=== PATIENT | female | born 1960 | race Hispanic/Latino ===

== ENCOUNTER → 2018-08-30 | Outpatient (CLI) | payer BC | END | disposition home or self-care (01) | LOC: RAH 15:42 | PROVIDERS: ATTEND Physician Assistant Medical | DX: Z12.31 Encounter for screening mammogram for malignant neoplasm of breast (principal) | CPT/HCPCS: 77067 ==

== ENCOUNTER 2018-09-07 07:28 | Observation (INO) | payer BC ==
[2018-09-03 14:36] VITALS: BP 112/60
[2018-09-03 14:43] LABS: APPEARANCE,URINE Clear (CLEAR); BILIRUBIN,URINE Negative (NEGATIVE); COLOR,URINE Yellow (YELLOW); GLUCOSE, URINE (UA) >=1000 mg/dL (NEGATIVE); KETONES,URINE Negative (NEGATIVE); LEUKOCYTE ESTERASE ,URINE Negative (NEGATIVE); NITRATE,URINE Negative (NEGATIVE); OCCULT BLOOD,URINE Negative (NEGATIVE); PROTEIN,URINE Negative (NEGATIVE); UROBILINOGEN,URINE 0.2 mg/dL (0.2-1.0)
[2018-09-03 14:44] LABS: BASOPHILS % (AUTO) 0.5 % (0.0-5.0); LYMPHOCYTES % (AUTO) 30.8 % (21.0-51.0); MEAN CORPUSCULAR HEMOGLOBIN 30.2 pg (27.0-33.0); MEAN CORPUSCULAR HGB CONC 32.8 g/dL (32.0-36.0); MEAN CORPUSCULAR VOLUME 91.8 fL (79-99); MONOCYTES % (AUTO) 5.1 % (3.0-13.0); NEUTROPHILS % (AUTO) 62.6 % (40.0-77.0); NUCLEATED RED BLOOD CELLS 0.1 % (0.0-0.19); PLATELET COUNT (AUTO) 202 K/uL (130-400); RED CELL DISTRIBUTION WIDTH 13.7 % (11.0-15.5); WHITE BLOOD COUNT (AUTO) 5.5 K/uL (4.8-10.8)
[2018-09-03 14:58] LABS: CREATININE 0.6 mg/dL (0.5-1.5); POTASSIUM 4.5 mmol/L (3.5-5.1)
[2018-09-03 15:14] LABS: BACTERIA,URINE None Seen /HPF (None Seen); MUCUS,URINE None Seen LPF (None Seen); RBC,URINE None Seen /HPF (0-1); SQUAMOUS EPITHELIAL CELL,UR None Seen /HPF (0-2); WBC,URINE 0-1 /HPF (0-1)
[2018-09-07] VITALS (24 sets, daily range): BP systolic 89–127; BP diastolic 50–70
[~2018-09-07] VITALS: Ht 152.4 cm; Wt 52.6 kg
[~2018-09-07 07:28] MED LIST: DAPA10TA PO; LISI2.5T2 PO; METF-446 PO; SIMV40TA5 PO
[2018-09-07] MEDS ORDERED: SODIUM CHLORIDE 0.9% 1000ML 1,000 ML IV ONE (08:05)
[2018-09-07] MEDS ORDERED: ONDANSETRON HCL 4 MG/2 ML VIAL ONE (08:38)
[2018-09-07] MEDS ORDERED: DEXAMETHASONE SOD PHOSPHATE 10MG/ML 1ML VIAL ONE (08:38)
[2018-09-07] MEDS ORDERED: ROCURONIUM 10MG/1ML SYR 10 MG/ML ML ONE (08:38)
[2018-09-07] MEDS ORDERED: MIDAZOLAM HCL 1 MG/ML 2ML VIAL ONE (08:38)
[2018-09-07] MEDS ORDERED: GLYCOPYRROLATE 1 MG/5 ML SYRINGE ONE (08:38)
[2018-09-07] MEDS ORDERED: PROPOFOL 10 MG/ML 20ML VIAL IV ONE (08:38)
[2018-09-07] MEDS ORDERED: LIDOCAINE PF 2% 5ML ABBOJECT ONE (08:38)
[2018-09-07] MEDS ORDERED: NEOSTIGMINE 5MG/5ML SYR IV ONE (08:38)
[2018-09-07] MEDS ORDERED: ROPIVACAINE 0.5% 5MG/ML 30ML IJ ONE (08:39)
[2018-09-07] MEDS ORDERED: FENTANYL CITRATE PF 50 MCG/1 ML 2ML VIAL ONE ×2 (08:39→10:33)
[2018-09-07] MEDS ORDERED: DEXAMETHASONE SOD PHOSPHATE 4 MG/ML 1ML VIAL ONE (08:39)
[2018-09-07] MEDS ORDERED: SODIUM CHLORIDE 0.9% 10 ML VIAL ONE (08:44)
[2018-09-07] MEDS: CEFAZOLIN SODIUM 1 GM VIAL ONE ×2 (08:48→10:15)
[2018-09-07] MEDS ORDERED: PROPRANOLOL HCL 1 MG/ML VIAL IVP ONE ×2 (10:23→10:33)
[2018-09-07] MEDS ORDERED: PHENYLEPHRINE HCL 10 MG/ML 1ML VIAL IV ONE (10:50)
[2018-09-07] MEDS ORDERED: MORPHINE SULFATE 2 MG/ML 1ML SYG IV PRN (12:00)
[2018-09-07] MEDS ORDERED: ACETAMINOPHEN-CODEINE 300/30MG TAB PO PRN (12:00)
[2018-09-07] MEDS ORDERED: ACETAMINOPHEN 325 MG TAB PO PRN (12:00)
[2018-09-07] MEDS ORDERED: ONDANSETRON HCL 4 MG/2 ML VIAL IVP PRN (12:00)
[2018-09-07] MEDS ORDERED: MEPERIDINE-PF 25 MG/ML SYG ONE ×2 (12:11→12:59)
--- NOTE | 2018-09-07 13:40 | NUR ---
PATIENT WAS RECEIVED IN BED WITH EYES CLOSED AND DROWZY, OPENS THEM TO SOFT VOICE STIMULI AND ANSWER QUESTIONS APPROPRIATELY. SHE VOICED TENDERNESS TO THE ABDOMEN WHEN ASKED, THEN SHE FALLS ASLEEP. VITAL SIGNS ARE STABLE AND IVF IS INFUSING WITHOUT PROBLEM.STEVENSON CATHETER IS TO BEDSIDE DRAINAGE BAG WITH CLEAR PALE YELLOW URINE. PATIENT IS UNABLE TO PROVIDE INFORMATION AT THIS TIME DUE TO SEDATION. NO FAMILY IS PRESENT AT THIS TIME, CALL LIGHT IS PLACED WITHIN HER REACH. WILL CONTINUE TO MONITOR.
--- NOTE | 2018-09-07 14:00 | NUR ---
ABDOMINAL DRESSING HAS BLOOD STAIN THAT I CIRCLED. BINDER IS IN PLACE.
--- NOTE | 2018-09-07 17:15 | NUR ---
FAMILY MEMBERS ARE AT THE BEDSIDE AT THIS TIME AND SHE IS AWAKE AND SITTING IN THE BED EATING WITHOUT PROBLEM. PLAN OF CARE WAS EXPLAINED TO THE PATIENT AND FAMILY AT THE BEDSIDE AND RT WAS NOTIFIED EARLIER TO PROVIDE HER WITH INCENTIVE SPIROMETRY FOR BREATHING EXERCISE AND SCD'S ARE ON.
--- NOTE | 2018-09-07 18:25 | NUR ---
ASSISTED UP INTO THE CHAIR, TOLERATED ACTIVITY WELL. AMBULATION IS ENCOURAGED.
[2018-09-07] MEDS: SODIUM CHLORIDE 0.9% 1000ML 1,000 ML IV SCH (19:03)
[2018-09-07] MEDS: CEFAZOLIN SODIUM 1 GM VIAL IVP SCH ×2 (19:04→20:00)
--- NOTE | 2018-09-07 19:30 | NUR ---
AMBULATING IN THE HALLWAY ASSISTED BY FAMILY MEMBERS.
[2018-09-08] VITALS: BP 92/51
[2018-09-08 04:00] VITALS: BP 92/53
[2018-09-08] MEDS: CEFAZOLIN SODIUM 1 GM VIAL IVP SCH ×2 (04:23→12:56)
[2018-09-08] MEDS: SODIUM CHLORIDE 0.9% 1000ML 1,000 ML IV SCH (04:57)
[2018-09-08 07:30] VITALS: BP 97/53
[2018-09-08] MEDS ORDERED: METFORMIN HCL 500 MG TABLET PO SCH (08:00)
[2018-09-08] MEDS ORDERED: LISINOPRIL 2.5 MG TABLET PO SCH (09:00)
--- NOTE | 2018-09-08 09:34 | NUR ---
MD ROUNDS DR. SLADE VISITED WITH PATIENT. PLAN OF CARE DISCUSSED. NEW ORDERS RECEIVED AND CARRIED OUT.
[2018-09-08] MEDS ORDERED: ACET1TAB12 PO (09:38)
--- NOTE | 2018-09-08 10:30 | NUR ---
STEVENSON CATHETER D/C PER DR. SLADE ORDERS. TIP OF CATHETER INTACT. PATIENT TOLERATED WELL. BALLOON DEFLATED WITH 10 CC OF WATER. PATIENT DUE TO VOID AT 1630.
[2018-09-08 11:00] VITALS: BP 94/57
--- NOTE | 2018-09-08 12:30 | NUR ---
PATIENT VOIDED 150 ML OF URINE COLLECTED.
--- NOTE | 2018-09-08 15:20 | NUR ---
DISCHARGE PATIENT GIVEN DISCHARGE INSTRUCTIONS AND EDUCATION. PATIENT AND FAMILY VERBALIZED UNDERSTANDING OF ALL EDUCATION GIVEN VIA TEACH BACK. INCLUDING FOLLOW UP APPOINTMENTS AND PRESCRIBED MEDICATIONS. IV DISCONTINUED, CATHETER INTACT. PATIENT LEFT VIA WHEELCHAIR TO PRIVATE CAR. ALL BELONGINGS TAKEN WITH. NO DISTRESS NOTED UPON DISCHARGE.
== END 2018-09-08 15:00 | disposition home or self-care (01) ==
LOC: DAH 07:28 → DAHIP 07:29 → 3DH 14:20
PROVIDERS: ADMIT Surgery; ATTEND Surgery
DX: K43.2 Incisional hernia without obstruction or gangrene (principal); E11.9 Type 2 diabetes mellitus without complications; I10 Essential (primary) hypertension
CPT/HCPCS: 36415; 49560; 49568; 80048; 81001; 82948 ×6; 85025; 96374; 96376; A4218; A4450; A4452; A4600; A4606; C1781; G0378 ×32; J0690 ×5; J1100 ×2; J1800 ×2; J2001; J2175 ×2; J2250; J2370; J2405; J2704; J2710; J2795; J3010 ×2; J3490; J7030 ×2; J7120

== ENCOUNTER → 2019-08-31 | Outpatient (CLI) | payer BC ==
[~2019-08-31] MED LIST changes: +ACET1TAB12 PO; +SIMV-46 PO; -SIMV40TA5 PO
== END | disposition home or self-care (01) ==
LOC: RAH 15:44
PROVIDERS: ATTEND Physician Assistant
DX: Z12.31 Encounter for screening mammogram for malignant neoplasm of breast (principal)
CPT/HCPCS: 77067

== ENCOUNTER → 2020-10-15 | Outpatient (CLI) | payer BC | END | disposition home or self-care (01) | LOC: RAH 15:15 | PROVIDERS: ATTEND Physician Assistant | DX: Z12.31 Encounter for screening mammogram for malignant neoplasm of breast (principal); E55.9 Vitamin D deficiency, unspecified; M81.0 Age-related osteoporosis without current pathological fracture | CPT/HCPCS: 77067 ==

== ENCOUNTER 2021-12-03 20:35 | Emergency (ER) | payer BC ==
[~2021-12-03] VITALS: Ht 152.4 cm; Wt 55.8 kg
[~2021-12-03 20:35] MED LIST changes: +LISI2.5T13 PO; -LISI2.5T2 PO
[2021-12-03 21:39] LABS: BASOPHILS % (AUTO) 0.4 % (0.0-5.0); EOSINOPHILS % (AUTO) 2.7 % (0.0-8.0); LYMPHOCYTES % (AUTO) 30.3 % (21.0-51.0); MEAN CORPUSCULAR HEMOGLOBIN 30.6 pg (27.0-33.0); MEAN CORPUSCULAR HGB CONC 32.4 g/dL (32.0-36.0); MEAN CORPUSCULAR VOLUME 94.5 fL (79-99); MONOCYTES % (AUTO) 5.7 % (3.0-13.0); NEUTROPHILS % (AUTO) 60.7 % (40.0-77.0); PLATELET COUNT (AUTO) 228 K/uL (130-400); RED BLOOD CELL COUNT(AUTO) 4.87 MIL/uL (4.00-5.50); RED CELL DISTRIBUTION WIDTH 12.2 % (11.0-15.5); WHITE BLOOD COUNT (AUTO) 5.7 K/uL (4.8-10.8)
[2021-12-03 21:42] LABS: APPEARANCE,URINE Clear (CLEAR); BILIRUBIN,URINE Negative (NEGATIVE); COLOR,URINE Yellow (YELLOW); GLUCOSE, URINE (UA) Negative (NEGATIVE); KETONES,URINE Negative (NEGATIVE); LEUKOCYTE ESTERASE ,URINE Moderate (NEGATIVE); NITRATE,URINE Negative (NEGATIVE); OCCULT BLOOD,URINE Negative (NEGATIVE); PH,URINE 7.5 (5.0-8.0); PROTEIN,URINE Negative (NEGATIVE)
[2021-12-03 21:49] LABS: CREATININE 0.7 mg/dL (0.5-1.5); POTASSIUM 4.5 mmol/L (3.5-5.1)
[2021-12-03 21:54] LABS: ALBUMIN 4.2 g/dL (3.5-5.0); BILIRUBIN,TOTAL 0.2 mg/dL (0.2-1.0); TOTAL PROTEIN, SERUM 8.1 g/dL (6.0-8.3)
[2021-12-03 21:57] LABS: BACTERIA,URINE Few /HPF (None Seen); MUCUS,URINE Few LPF (None Seen); SQUAMOUS EPITHELIAL CELL,UR Few /HPF (0-2)
[2021-12-03 22:33] VITALS: BP 135/87
== END 2021-12-03 22:37 | disposition home or self-care (01) ==
LOC: EDH 20:35
DX: H33.22 Serous retinal detachment, left eye (principal); E11.9 Type 2 diabetes mellitus without complications; Z79.84 Long term (current) use of oral hypoglycemic drugs; Z79.899 Other long term (current) drug therapy
CPT/HCPCS: 36415; 80053; 81001; 85025; 87088

== ENCOUNTER → 2022-12-15 | Outpatient (CLI) | payer BC | END | disposition home or self-care (01) | LOC: RAH 15:17 | PROVIDERS: ATTEND Physician Assistant | DX: Z12.31 Encounter for screening mammogram for malignant neoplasm of breast (principal) | CPT/HCPCS: 77067 ==

== ENCOUNTER → 2023-12-17 | Outpatient (CLI) | payer BC | END | disposition home or self-care (01) | LOC: RAH 15:53 | PROVIDERS: ATTEND Physician Assistant | DX: Z12.31 Encounter for screening mammogram for malignant neoplasm of breast (principal) | CPT/HCPCS: 77067 ==